=== PATIENT | male | born 1980 | race Caucasian/White ===

== ENCOUNTER 2020-10-11 10:36 | Emergency (ER) | payer SELFPAY ==
[~2020-10-11] VITALS: Ht 177.8 cm; Wt 99.8 kg
[2020-10-11] MEDS ORDERED: CASIRIVIMAB/IMDEVIMAB 10 ML in SODIUM CHLORIDE 0.9% 100 ML IV ONE (10:45)
[2020-10-11] MEDS ORDERED: SODIUM CHLORIDE 0.9% 100 ML ONE (10:58)
== END 2020-10-11 16:11 | disposition home or self-care (01) ==
LOC: ER 10:39
DX: R06.02 Shortness of breath (principal); R05 Cough; U07.1 COVID-19
CPT/HCPCS: 99283; J7050